=== PATIENT | male | born 1940 | race Caucasian/White ===

== ENCOUNTER → 2018-04-21 10:02 | Outpatient (CLI) | payer MEDICARE, BC | END | disposition home or self-care (01) | LOC: D.RAD 10:02 | DX: M54.16 Radiculopathy, lumbar region (principal) ==

== ENCOUNTER 2018-07-10 05:08 | Day surgery (SDC) | payer MEDICARE, BC ==
[~2018-07-10] VITALS: Ht 179.1 cm; Wt 90.7 kg
[~2018-07-10 05:08] MED LIST: BAYER CHEWABLE81 MG PO; DIGOXIN; FUROSEMIDE20 MG PO; LISINOPRIL20 MG PO; METOPROLOL TART25 MG PO; NEURONTIN 300300 MG PO; PLAVIX75 MG PO; ULTRAM50 MG PO
[2018-07-10 05:35] LABS: BASOPHILS 0.8 % (0-2); EOSINOPHILS 5.8 % (0-7); HEMATOCRIT 37.8 % (42.0-54.0); HEMOGLOBIN 12.7 g/dL (13.5-17.5); IMMATURE GRANULOCYTES 1.1 % (0-5); LYMPHOCYTES 23.5 % (15-50); MCH 31.3 pg (26.0-34.0); MCHC 33.6 g/dL (31.0-37.0); MCV 93.1 fL (80.0-100.0); MEAN PLATELET VOLUME 8.8 fL (7.4-10.4); MONOCYTES 10.7 % (2-11); NEUTROPHILS 58.1 % (40-80); PLATELET COUNT 202 10x3/uL (130-400); RBC 4.06 10x6/uL (4.20-6.10); RDW 13.2 % (11.5-14.5); WBC 8.5 10x3/uL (4.8-10.8)
[2018-07-10 05:55] LABS: APTT 27.1 SECONDS (22.8-39.4); INR 1.02 (0.85-1.17); PROTIME 12.9 SECONDS (11.6-15.0)
[2018-07-10 06:40] VITALS: BP 118/63; Ht 179.1 cm; Wt 90.7 kg
--- NOTE | 2018-07-10 08:39 | NUR ---
PATIENT POSITIONED ON BACK FRAME ALL AREAS PADDED AND SECURED, GENITALS CHECKED NO IMPINGEMENTS, DARWIN.
--- NOTE | 2018-07-10 09:35 | NUR ---
STRONG BILATERAL MANAGER CAREER STRENGTH NOTED IN UPPER EXTREMITIES. MOVES LOWER EXTREMIES EQUALLY. PEDAL PULSES STRONG BILATERALLY.
--- NOTE | 2018-07-17 15:27 | OP ---
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 PROCEDURES: Lumbar laminotomy, medial facetectomy, and foraminotomy with discectomy L2-L3 on the right. SURGEON: Kelvin Morris MD DESCRIPTION AND TECHNIQUE: After induction of general endotracheal anesthesia, the patient was rolled prone on the Colten frame. Lumbar spine was prepped and draped in usual sterile fashion. Fluoroscopic x-ray and spinal needle localized to L2-L3 interspace on the right side. After infiltration of 1:100,000 epinephrine and 1% lidocaine, a stab incision was created with a #11 blade and series of dilators were used to advance a METRx retractor to the L2-L3 interspace on the right side that was confirmed with fluoroscopic x-ray. A microscope and Midas-Timbo drill were used to perform a laminectomy, medial facetectomy, and foraminotomy at L2-L3 on the right. Following this, hypertrophied ligamentum flavum was removed with Cloward rongeurs. A calcified disc protrusion was removed with combination of curettes and pituitary rongeurs. Following this, the L2-L3 nerve roots were decompressed as well. Meticulous hemostasis was maintained throughout the wound. The wound was irrigated with copious amounts of Ancef irrigant solution. The fascia was closed with 2-0 Vicryl suture, the subdermal layer was closed with 3-0 Vicryl suture. The skin was closed with feng. A sterile dressing was applied to the wound. The patient was awakened in good condition and taken to recovery. All counts were reported as correct. Estimated blood loss was minimal. TRANSINT:[id number] Voice Confirmation ID: [id number] DOCUMENT ID: [id number] KELVIN MORRIS MD at 1527 CC: [id number] DICTATION DATE: 07/16/18 STEAM TABLE ASSOCIATE: 07/16/185 [facility] 07/10/18 [place] [id number] [place] [address]
== END 2018-07-10 11:15 | disposition home or self-care (01) ==
LOC: D.OPS 05:08 → D.PAN 07:30 → D.OPS 07:30
PROVIDERS: Anesthesiology; ATTEND Neurological Surgery
DX: M51.16 Intervertebral disc disorders with radiculopathy, lumbar region (principal); M48.061 Spinal stenosis, lumbar region without neurogenic claudication